=== PATIENT | male | born 1980 | race Caucasian/White ===

== ENCOUNTER 2018-06-25 19:03 | Emergency (ER) | payer OTHER ==
[~2018-06-25] VITALS: Ht 177.8 cm; Wt 64.6 kg
[~2018-06-25 19:03] MED LIST: BUTALB-APAP-CA1 EACH PO; FIORICET,ESG1 TABLET PO; LORCET 5-325 M1 EACH PO; MELOXICAM15 MG PO; METAXALONE800 MG PO; MOBIC15 MG PO; SOMA350 MG PO; TRAMADOL HCL50 MG PO; VITAMIN B-122000 MC1 PO
[2018-06-25] MEDS ORDERED: MOTRIN800 MG PO (22:48)
[2018-06-25] MEDS ORDERED: PERCOCET 5/31 TABLET PO (22:48)
[2018-06-25 23:06] VITALS: BP 129/80
== END 2018-06-25 23:07 | disposition home or self-care (01) ==
LOC: EME 19:03
DX: S63.004A Unspecified dislocation of right wrist and hand, initial encounter (principal); S52.611A Displaced fracture of right ulna styloid process, initial encounter for closed fracture; Y93.67 Activity, basketball; W18.30XA Fall on same level, unspecified, initial encounter; Z98.890 Other specified postprocedural states
CPT/HCPCS: 73100; 73110; 99281; 99285; J3010